=== PATIENT | female | born 1940 | race Caucasian/White ===

== ENCOUNTER 2020-08-25 20:46 | Emergency (ER) | payer MEDICARE, OTHER ==
[~2020-08-25] VITALS: Ht 162.6 cm; Wt 81.8 kg
[2020-08-25] MEDS ORDERED: predniSONE 20 MG TAB PO ONE (21:15)
[2020-08-25] MEDS ORDERED: oxyCODONE/APAP 5/325MG (PERCOCET 5) TABLET PO ONE (21:15)
[2020-08-25] MEDS ORDERED: ACETAMINOPHEN 325 MG TABLET PO ONE (21:15)
[2020-08-25] MEDS ORDERED: fentaNYL INJECTION 100 MCG/2 ML AMP IVP ONE (23:00)
[2020-08-25 23:22] LABS: HEMOGLOBIN 12.1 G/DL (11.5-16.0); MEAN CORPUSCULAR HEMOGLOBIN 30 PG (25-34); WHITE BLOOD COUNT 5.3 10^3/uL (4.3-11.0)
[2020-08-25 23:23] LABS: BASOPHILS % (AUTO) 0 % (0-10); EOSINOPHILS # (AUTO) 0.1 10^3/uL (0.0-0.3); EOSINOPHILS % (AUTO) 2 % (0-10); HEMATOCRIT 37 % (35-52); LYMPHOCYTES % (AUTO) 19 % (12-44); MEAN CORPUSCULAR HGB CONC 33 G/DL (32-36); MEAN CORPUSCULAR VOLUME 93 FL (80-99); MEAN PLATELET VOLUME 11.4 FL (7.4-10.4); MONOCYTES # (AUTO) 0.6 X 10^3 (0.0-1.0); MONOCYTES % (AUTO) 11 % (0-12); NEUTROPHILS # (AUTO) 3.5 X 10^3 (1.8-7.8); NEUTROPHILS % (AUTO) 67 % (42-75); PLATELET COUNT 160 10^3/uL (130-400)
--- NOTE | 2020-08-25 23:31 | ED General ---
General Chief Complaint: Lower Extremity Stated Complaint: PAIN Nursing Triage Note: Pt came in by EMS with chief complaint of bilateral leg pain, hip pain, back pain. Pt was alert, and oriented x 4. Pt stated this is chronic, but it got worse two weeks ago and even worse this morning. The pt stated she couldn't get out of bed this morning. Then she couldn't get out of her reclyiner to go to bed this evening and could not walk/lay down in bed. Pt took xanax for help, but did not help. Nursing Sepsis Screen: No Definite Risk History of Present Illness Date Seen by Provider: Aug 25, 2020 Time Seen by Provider: 20:50 Initial Comments The patient is a 79-year-old female with a history of hypertension, chronic lymphedema secondary to right breast cancer status post intervention, chronic pain syndrome, fibromyalgia and peripheral neuropathy. She reports chronic right neck, right shoulder and right chest wall pain as well as chronic low back and bilateral lower extremity pain for which she takes Lyrica, tizanidine and Paxil. Ms. Sosa presents from her assisted living facility with concern for acute worsening of her chronic right neck, right shoulder, right chest wall and right lower extremity pain. She states that over the past several days she has not been able to get out of her chair due to pain and has not been able to complete any of her own ADLs secondary to severe worsening of her chronic pain. She has taken her home medicines without relief of her pain. She states she is unable to walk secondary to her severe acute on chronic pain. She clarifies that there has been no trauma and that she has not had any falls or injuries. She denies fevers, nausea or vomiting upper respiratory congestion/rhinorrhea, cough, shortness of breath or chest pain of any kind, abdominal pain, flank pain, back pain, dysuria or hematuria, changes in bowel habits. She denies loss of bowel or bladder control, saddle anesthesia, new lower extremity weakness, numbness, tingling, new urinary retention. She is alert and pleasantly and appropriately interactive and in absolutely no acute distress with appropriate vital signs upon initial evaluation here in the emergency department. Allergies and Home Medications Allergies Coded Allergies: Sulfa (Sulfonamide Antibiotics) (Verified Allergy, Unknown, hives/rash, 08/25/20) codeine (Verified Allergy, Unknown, pain, 08/25/20) hydrocodone (Verified Allergy, Unknown, pain, 08/25/20) Patient Home Medication List Home Medication List Reviewed: Yes Review of Systems Review of Systems Constitutional: see HPI All Other Systems Reviewed Negative Unless Noted: Yes (Negative excepted noted.) Past Kuykzdq-Zvsawn-Khjkro Hx Past Med/Social Hx: Reviewed Nursing Past Med/Soc Hx Patient Social History Alcohol Use: Denies Use Recreational Drug Use: No Smoking Status: Never a Smoker 2nd Hand Smoke Exposure: No Recent Foreign Travel: No Contact w/Someone Who Travel: No Recent Infectious Disease Expo: No Recent Hopitalizations: No Physical Abuse: No Sexual Abuse: No Mistreated: No Fear: No Seasonal Allergies Seasonal Allergies: No Past Medical History Respiratory: No Cardiac: Yes Hypertension Neurological: No Genitourinary: No Gastrointestinal: No Musculoskeletal: Yes (polyneuropathy, lymphedema) Fibromyalgia Cancer: Yes Breast Psychosocial: No Integumentary: No Blood Disorders: No Family Medical History Reviewed Nursing Family Hx Physical Exam Vital Signs Vital Signs - First Documented 08/25/20 20:46 Temp 36.6 Pulse 87 Resp 18 B/P (MAP) 140/62 (88) Pulse Ox 96 O2 Delivery Room Air Capillary Refill : Less Than 3 Seconds Height, Weight, BMI Height: '" Weight: lbs. oz. kg; 30.00 BMI Method: General Appearance: No Apparent Distress Comments This is an elderly female appearing nontoxic and in no acute distress. Head is normocephalic and atraumatic. Neck is supple and nontender at the posterior midline, with mild right lateral tenderness to palpation without erythema, warmth or swelling which the patient states is acute on chronic. Oropharynx is moist. Lungs are clear to auscultation at all stations. Evaluation of the chest wall reveals no erythema, warmth, swelling, paradoxical movement or other acute abnormality however there is tenderness noted along the right midaxillary line, patient reports acute on chronic discomfort following her breast cancer intervention. There is a normal S1 and S2 without rubs or gallops and capillary refill is appropriate, less than 2 seconds globally. Abdomen is soft, nontender and nondistended. Examination of the back reveals no erythema, warmth, swelling, step-offs or deformities. Bilateral upper and lower extremities are neurovascularly intact with strength 5 out of 5, sensation intact to light touch in all nerve distributions, peripheral pulses 2+, capillary refill less than 2 seconds, hands and feet warm and well-perfused. There is mild tenderness over the right hip at the greater trochanter and there is mild pain with flexion and extension at the right hip but patient does have good active and passive range of motion of the right hip. No joint irritability to the right hip. No pain with ranging of any other joints of the right lower ex tremity. No calf tenderness or swelling bilaterally. Progress/Results/Core Measures Suspected Sepsis Recent Fever Within 48 Hours: No Infection Criteria Present: None New/Unexplained Altered Menta: No Sepsis Screen: No Definite Risk SIRS Temperature: Pulse: 87 Respiratory Rate: 18 Laboratory Tests 08/25/20 23:15: White Blood Count 5.3 Blood Pressure 140 /62 Mean: 88 Laboratory Tests 08/25/20 23:15: Creatinine 1.03, Platelet Count 160, Total Bilirubin 0.7 Results/Orders Lab Results Laboratory Tests Test 08/25/20 23:15 08/25/20 23:33 Range/Units White Blood Count 5.3 4.3-11.0 10^3/uL Red Blood Count 3.97 L 4.35-5.85 10^6/uL Hemoglobin 12.1 11.5-16.0 G/DL Hematocrit 37 35-52 % Mean Corpuscular Volume 93 80-99 FL Mean Corpuscular Hemoglobin 30 25-34 PG Mean Corpuscular Hemoglobin Concent 33 32-36 G/DL Red Cell Distribution Width 12.5 10.0-14.5 % Platelet Count 160 130-400 10^3/uL Mean Platelet Volume 11.4 H 7.4-10.4 FL Immature Granulocyte % (Auto) 0 % Neutrophils (%) (Auto) 67 42-75 % Lymphocytes (%) (Auto) 19 12-44 % Monocytes (%) (Auto) 11 0-12 % Eosinophils (%) (Auto) 2 0-10 % Basophils (%) (Auto) 0 0-10 % Neutrophils # (Auto) 3.5 1.8-7.8 X 10^3 Lymphocytes # (Auto) 1.0 1.0-4.0 X 10^3 Monocytes # (Auto) 0.6 0.0-1.0 X 10^3 Eosinophils # (Auto) 0.1 0.0-0.3 10^3/uL Basophils # (Auto) 0.0 0.0-0.1 10^3/uL Immature Granulocyte # (Auto) 0.0 0.0-0.1 10^3/uL Sodium Level 143 135-145 MMOL/L Potassium Level 4.4 3.6-5.0 MMOL/L Chloride Level 104 98-107 MMOL/L Carbon Dioxide Level 28 21-32 MMOL/L Anion Gap 11 5-14 MMOL/L Blood Urea Nitrogen 24 H 7-18 MG/DL Creatinine 1.03 0.60-1.30 MG/DL Estimat Glomerular Filtration Rate 52 BUN/Creatinine Ratio 23 Glucose Level 102 70-105 MG/DL Calcium Level 8.8 8.5-10.1 MG/DL Corrected Calcium 9.0 8.5-10.1 MG/DL Total Bilirubin 0.7 0.1-1.0 MG/DL Aspartate Amino Transf (AST/SGOT) 13 5-34 U/L Alanine Aminotransferase (ALT/SGPT) 7 0-55 U/L Alkaline Phosphatase 60 40-136 U/L Troponin I < 0.30 <0.30 NG/ML Pro-B-Type Natriuretic Peptide 107.1 H <75.0 PG/ML Total Protein 6.3 L 6.4-8.2 GM/DL Albumin 3.7 3.2-4.5 GM/DL Urine Color YELLOW Urine Clarity CLEAR Urine pH 6.0 5-9 Urine Specific [place] 1.025 H 1.016-1.022 Urine Protein NEGATIVE NEGATIVE Urine Glucose (UA) NEGATIVE NEGATIVE Urine Ketones NEGATIVE NEGATIVE Urine Nitrite NEGATIVE NEGATIVE Urine Bilirubin NEGATIVE NEGATIVE Urine Urobilinogen 0.2 < = 1.0 MG/DL Urine Leukocyte Esterase NEGATIVE NEGATIVE Urine RBC (Auto) NEGATIVE NEGATIVE Urine RBC NONE /HPF Urine WBC RARE /HPF Urine Squamous Epithelial Cells 0-2 /HPF Urine Crystals NONE /LPF Urine Bacteria NEGATIVE /HPF Urine Casts NONE /LPF Urine Mucus LARGE H /LPF Urine Culture Indicated NO My Orders Orders - NIMO MCKAY MD Oxycodone/Apap 5/325mg Tablet (Percocet (08/25/20 21:15) Acetaminophen Tablet/Caplet (Tylenol T (08/25/20 21:15) Prednisone Tablet (Deltasone Tablet) (08/25/20 21:15) Cbc With Automated Diff (08/25/20 22:48) Comprehensive Metabolic Panel (10/3/20 22:48) Troponin I Fs (08/25/20 22:48) Ekg Tracing (08/25/20 22:48) Chest 1 View Ap/Pa Only (08/25/20 22:48) Ua Culture If Indicated (08/25/20 22:48) Probnp Fs (08/25/20 22:48) Fentanyl Injection (Sublimaze Injection (08/25/20 23:00) Medications Given in ED Current Medications Medications Dose Ordered Sig/Rod Route Start Time Stop Time Status Last Admin Dose Admin Acetaminophen 650 mg ONCE ONCE PO 08/25/20 21:15 08/25/20 21:16 DC 08/25/20 21:40 650 MG Fentanyl Citrate 50 mcg ONCE ONCE IVP 08/25/20 23:00 08/25/20 23:01 DC 08/25/20 23:27 50 MCG Oxycodone/ Acetaminophen 1 tab ONCE ONCE PO 08/25/20 21:15 08/25/20 21:16 DC 08/25/20 21:41 1 TAB Prednisone 50 mg ONCE ONCE PO 08/25/20 21:15 08/25/20 21:16 DC 08/25/20 21:41 50 MG Vital Signs/I&O 08/25/20 20:46 Temp 36.6 Pulse 87 Resp 18 B/P (MAP) 140/62 (88) Pulse Ox 96 O2 Delivery Room Air Capillary Refill : Less Than 3 Seconds Blood Pressure Mean: 88 Progress Note : Time: 20:55 Progress Note Elderly female who presents reporting inability to ambulate secondary to an acute flare of her chronic right neck, right shoulder, right chest wall and right hip pain. Vital signs and clinical examination are reassuring. We'll treat symptomatically with medications as per nursing flow sheet and will then reevaluate. If patient feels better and is able to ambulate safely, anticipate discharge home back to her assisted living facility to follow up closely with her pain management doctor immediately after the weekend. She understands and agrees with this plan of care. 2300: Unfortunately, patient states her pain is not improved after multiple med ications for symptom management here in the emergency department. She is unable to ambulate due to pain. Therefore, we will escalate workup with labs, EKG and chest x-ray (low suspicion for any acute process aside from an acute flare of her chronic pain/fibromyalgia, so will hold off on imaging right shoulder and hip given no history of any trauma to those areas), and will plan for hospital admission for attention from physical therapy, pain control and further care. 0005: Workup as above is unremarkable and reassuring. No clear acute etiology for patient's pain; as multiple rounds of medication have not resulted in any improvement in discomfort, feel that there is most likely a significant supratentorial component to the underlying process. Nevertheless, this is a very elderly female who is unable to walk due to pain and cannot be discharged back to her assisted living apartment at this time. Will require admission. Patient requests to be admitted to [place] and declines [facility] admission. She is graciously accepted in transfer to that facility by Dr. Arreguin. ECG Comment Sinus rhythm, left bundle branch block, no acute ST elevation or depression, rate 68, EP interpretation. Diagnostic Imaging Comments XR chest: no acute process on my wet read; ICD-type device in place. Departure Impression Primary Impression: Acute right hip pain Additional Impressions: Acute chest wall pain Chronic pain syndrome Unable to ambulate Disposition: XFER SHT-TRM HOSP Condition: Stable Transfer Transfer Reason: Patient preference Time Spoke to Accepting Phy: 00:00 Transfer Progress Notes Patient declines [facility] admission and requests [facility] transfer. Will respect her preference in this matter. She understands that we have the services needed to care for her at [facility]. Transfer Facility: [place] Departure-Patient Inst. Referrals: NO,LOCAL PHYSICIAN (PCP/Family) Primary Care Physician NIMO MCKAY MD Aug 25, 2020 23:31
[2020-08-25 23:42] LABS: CLARITY,URINE CLEAR; COLOR,URINE YELLOW
[2020-08-25 23:43] LABS: BACTERIA,URINE NEGATIVE /HPF; BILIRUBIN,URINE NEGATIVE (NEGATIVE); GLUCOSE, URINE (UA) NEGATIVE (NEGATIVE); KETONES,URINE NEGATIVE (NEGATIVE); LEUKOCYTE ESTERASE ,URINE NEGATIVE (NEGATIVE); NITRITE,URINE NEGATIVE (NEGATIVE); PROTEIN,URINE NEGATIVE (NEGATIVE); SQUAMOUS EPITHELIAL CELL,UR 0-2 /HPF; WBC,URINE RARE /HPF
[2020-08-25 23:43] LABS: BUN/CREATININE RATIO 23; CARBON DIOXIDE 28 MMOL/L (21-32); CHLORIDE 104 MMOL/L (98-107); CREATININE SERUM 1.03 MG/DL (0.60-1.30); GFR ESTIMATED 52; GLUCOSE 102 MG/DL (70-105); POTASSIUM 4.4 MMOL/L (3.6-5.0); SODIUM 143 MMOL/L (135-145)
[2020-08-25 23:44] LABS: ALANINE AMINOTRANSFERASE 7 U/L (0-55); ALBUMIN 3.7 GM/DL (3.2-4.5); ALKALINE PHOSPHATASE 60 U/L (40-136); BILIRUBIN,TOTAL 0.7 MG/DL (0.1-1.0); CALCIUM 8.8 MG/DL (8.5-10.1); TOTAL PROTEIN 6.3 GM/DL (6.4-8.2)
[2020-08-26 00:42] VITALS: BP 139/60
--- NOTE | 2020-08-26 01:20 | NUR ---
Report was given to [facility] at this time. Care was transferred.
--- NOTE | 2020-08-26 02:03 | NUR ---
[facility] was called and notified that pt was transferred to [facility]. Karen Sosa her emergency contact was notified as well.
--- NOTE | 2020-08-26 06:45 | Diagnostic Imaging Report ---
Indication: Dyspnea with lower extremity pain and back pain. Comparison: None. Discussion: Single portable upright view of the chest was obtained. Heart is upper limits of normal in size. Elevated right hemidiaphragm. Patchy opacities within the left lung base likely represents atelectasis. Early pneumonia is not entirely excluded. No pleural fluid or pneumothorax. Left-sided pacemaker is noted. No osseous abnormality. Impression: 1. Mild infiltrates within the left lung base, likely atelectasis. Early pneumonia cannot be excluded. Dictated by: Dictated on workstation # [id number]
== END 2020-08-26 01:20 | disposition short-term general hospital (02) ==
LOC: EDUNIT# 20:46 → ER FS 20:48
DX: M25.551 Pain in right hip (principal); R07.89 Other chest pain; G89.29 Other chronic pain; Z85.3 Personal history of malignant neoplasm of breast; Z88.2 Allergy status to sulfonamides; Z88.5 Allergy status to narcotic agent
CPT/HCPCS: 36415; 51702; 71045; 80053; 81000; 83880; 84484; 85025; 93005

== ENCOUNTER → 2020-12-23 | Outpatient (CLI) | payer MEDICARE, OTHER ==
[2020-12-23 16:30] LABS: BACTERIA,URINE NEGATIVE /HPF; BILIRUBIN,URINE NEGATIVE (NEGATIVE); CLARITY,URINE CLEAR; COLOR,URINE DARK YELLOW; GLUCOSE, URINE (UA) NEGATIVE (NEGATIVE); KETONES,URINE NEGATIVE (NEGATIVE); LEUKOCYTE ESTERASE ,URINE TRACE (NEGATIVE); NITRITE,URINE NEGATIVE (NEGATIVE); PH,URINE 5.5 (5-9); PROTEIN,URINE NEGATIVE (NEGATIVE)
[2020-12-23 16:31] LABS: CALCIUM OXALATE CRYSTALS,UR MODERATE /LPF; SQUAMOUS EPITHELIAL CELL,UR 0-2 /HPF
== END ==
LOC: LAB FS 15:23
PROVIDERS: ATTEND Family Medicine
DX: N39.8 Other specified disorders of urinary system (principal); R30.0 Dysuria
CPT/HCPCS: 81000; 87088

== ENCOUNTER 2023-04-30 14:38 | Emergency (ER) | payer MEDICARE, OTHER ==
[~2023-04-30] VITALS: Ht 160 cm; Wt 65.0 kg
[~2023-04-30 14:38] MED LIST: KETO10TA PO
--- NOTE | 2023-04-30 14:44 | ED General ---
General Chief Complaint: General Problems/Pain Stated Complaint: SYNCOPAL EPISODE History of Present Illness Date Seen by Provider: Apr 30, 2023 Time Seen by Provider: 14:44 Initial Comments 82-year-old female sent in from [facility] for syncopal episode x2. Patient was in her wheelchair both times so that they were standing up when she had syncopal episodes. No reports of chest pain, recent illnesses, nausea vomiting or any other systemic complaints. Nursing feels that maybe she is lit tle bit mild dehydrated. No urinary symptoms. Allergies and Home Medications Allergies Coded Allergies: Sulfa (Sulfonamide Antibiotics) (Verified Allergy, Unknown, hives/rash, 08/25/20) codeine (Verified Allergy, Unknown, pain, 08/25/20) hydrocodone (Verified Allergy, Unknown, pain, 08/25/20) Patient Home Medication List Home Medication List Reviewed: Yes Ketorolac Tromethamine (Ketorolac Tromethamine) 10 Mg Tablet, 10 MG PO Q6H Prescribed by: HARSHIL ANDREWS on 03/01/221912 Review of Systems Review of Systems Constitutional: No chills, No dizziness; malaise EENTM: no symptoms reported Respiratory: no symptoms reported Cardiovascular: syncope Gastrointestinal: no symptoms reported Musculoskeletal: no symptoms reported Skin: no symptoms reported Psychiatric/Neurological: No Symptoms Reported Hematologic/Lymphatic: No Symptoms Reported Immunological/Allergic: no symptoms reported Past Ayujrlf-Vnkpjf-Xgfchg Hx Seasonal Allergies Seasonal Allergies: No Past Medical History Surgeries: Yes Breast, Eye Surgery, Gallbladder, Pacemaker, Tonsillectomy Respiratory: No Cardiac: Yes (History of heart block requiring pacemaker, lymphedema) Hypertension Neurological: Yes Neuropathy Genitourinary: No Gastrointestinal: No Musculoskeletal: Yes (polyneuropathy, lymphedema) Fibromyalgia HEENT: Yes Glaucoma Cancer: Yes Breast Psychosocial: No Integumentary: No Blood Disorders: No Physical Exam Vital Signs Vital Signs - First Documented 04/30/23 14:45 Pulse 63 Resp 18 B/P (MAP) 94/48 (63) Pulse Ox 97 O2 Delivery Room Air Capillary Refill : Height, Weight, BMI Height: '" Weight: lbs. oz. kg; 24.00 BMI Method: General Appearance: No Apparent Distress HEENT: PERRL/EOMI Respiratory: Lungs Clear, Normal Breath Sounds Cardiovascular: Regular Rate, Rhythm, No Edema Gastrointestinal: Non Tender, Soft Neurologic/Psychiatric: Oriented x3, No Motor/Sensory Deficits, Normal Mood /Affect, blacking wheel tender II-XII Norm as Tested Skin: Normal Color, Warm/Dry Focused Exam Lactate Level 04/30/23 14:53: Lactic Acid Level 1.35 Lactic Acid Level Laboratory Tests Test 04/30/23 14:53 Lactic Acid Level 1.35 MMOL/L (0.50-2.00) Progress/Results/Core Measures Suspected Sepsis SIRS Temperature: Pulse: Respiratory Rate: Laboratory Tests 04/30/23 14:45: White Blood Count 6.1 Blood Pressure / Mean: 04/30/23 14:53: Lactic Acid Level 1.35 Laboratory Tests 04/30/23 14:45: Creatinine 0.99, Platelet Count 142, Total Bilirubin 0.9 Results/Orders Lab Results Laboratory Tests Test 04/30/23 14:45 04/30/23 14:53 04/30/23 15:57 Range/Units White Blood Count 6.1 4.3-11.0 10^3/uL Red Blood Count 3.88 3.80-5.11 10^6/uL Hemoglobin 11.8 11.5-16.0 g/dL Hematocrit 36 35-52 % Mean Corpuscular Volume 94 80-99 fL Mean Corpuscular Hemoglobin 30 25-34 pg Mean Corpuscular Hemoglobin Concent 33 32-36 g/dL Red Cell Distribution Width 12.9 10.0-14.5 % Platelet Count 142 130-400 10^3/uL Mean Platelet Volume 11.2 9.0-12.2 fL Immature Granulocyte % (Auto) 0 % Neutrophils (%) (Auto) 76 H 42-75 % Lymphocytes (%) (Auto) 14 12-44 % Monocytes (%) (Auto) 8 0-12 % Eosinophils (%) (Auto) 2 0-10 % Basophils (%) (Auto) 1 0-10 % Neutrophils # (Auto) 4.6 1.8-7.8 10^3/uL Lymphocytes # (Auto) 0.8 L 1.0-4.0 10^3/uL Monocytes # (Auto) 0.5 0.0-1.0 10^3/uL Eosinophils # (Auto) 0.1 0.0-0.3 10^3/uL Basophils # (Auto) 0.0 0.0-0.1 10^3/uL Immature Granulocyte # (Auto) 0.0 0.0-0.1 10^3/uL Sodium Level 140 135-145 MMOL/L Potassium Level 4.4 3.6-5.0 MMOL/L Chloride Level 104 98-107 MMOL/L Carbon Dioxide Level 28 21-32 MMOL/L Anion Gap 8 5-14 MMOL/L Blood Urea Nitrogen 16 7-18 MG/DL Creatinine 0.99 0.60-1.30 MG/DL Estimat Glomerular Filtration Rate 58 BUN/Creatinine Ratio 16 Glucose Level 106 H 70-105 MG/DL Calcium Level 8.8 8.5-10.1 MG/DL Corrected Calcium 9.3 8.5-10.1 MG/DL Magnesium Level 2.3 1.6-2.4 MG/DL Total Bilirubin 0.9 0.1-1.0 MG/DL Aspartate Amino Transf (AST/SGOT) 18 5-34 U/L Alanine Aminotransferase (ALT/SGPT) 9 0-55 U/L Alkaline Phosphatase 51 40-136 U/L Troponin I < 0.30 <0.30 NG/ML C-Reactive Protein < 0.30 <0.50 MG/DL Pro-B-Type Natriuretic Peptide 142.3 <450.0 PG/ML Total Protein 6.0 L 6.4-8.2 GM/DL Albumin 3.4 3.2-4.5 GM/DL Serum Alcohol < 10 <10 MG/DL Lactic Acid Level 1.35 0.50-2.00 MMOL/L Urine Color YELLOW Urine Clarity CLEAR Urine pH 6.0 5-9 Urine Specific [place] <=1.005 1.016-1.022 Urine Protein NEGATIVE NEGATIVE Urine Glucose (UA) NEGATIVE NEGATIVE Urine Ketones NEGATIVE NEGATIVE Urine Nitrite NEGATIVE NEGATIVE Urine Bilirubin NEGATIVE NEGATIVE Urine Urobilinogen 0.2 < = 1.0 MG/DL Urine Leukocyte Esterase NEGATIVE NEGATIVE Urine RBC (Auto) NEGATIVE NEGATIVE Urine RBC NONE /HPF Urine WBC RARE /HPF Urine Squamous Epithelial Cells 5-10 /HPF Urine Crystals NONE /LPF Urine Bacteria NEGATIVE /HPF Urine Casts NONE /LPF Urine Mucus NEGATIVE /LPF Urine Culture Indicated NO My Orders Orders - CHILDS,PRINCESS L DO Alcohol (04/30/23 14:45) Cbc With Automated Diff (04/30/23 14:45) Comprehensive Metabolic Panel (04/30/23 14:45) Lactic Acid Analyzer (04/30/23 14:45) Magnesium (04/30/23 14:45) Ua Culture If Indicated (04/30/23 14:45) Crp Fs (04/30/23 14:45) Troponin I Fs (04/30/23 14:45) Ekg Tracing (04/30/23 14:45) Monitor-Rhythm Ecg Trace Only (04/30/23 14:45) Ed Iv/Invasive Line Start (04/30/23 14:45) Ns Iv 500 Ml (Sodium Chloride 0.9%) (04/30/23 14:45) Probnp Fs (04/30/23 14:45) Medications Given in ED Current Medications Medications Dose Ordered Sig/Rod Route Start Time Stop Time Status Last Admin Dose Admin Sodium Chloride 500 ml @ 0 mls/hr Q0M ONCE IV 04/30/23 14:45 04/30/23 14:46 DC 04/30/23 14:51 0 MLS/HR Vital Signs/I&O 04/30/23 14:45 Pulse 63 Resp 18 B/P (MAP) 94/48 (63) Pulse Ox 97 O2 Delivery Room Air Capillary Refill : Progress Note : Progress Note Patient's diagnostic studies were ordered reviewed and interpreted by me. Patient's labs show no concerning acute findings. Patient's EKG shows ventricular rate 62, AL 172 with paced rhythm. Patient's UA shows no signs of infection or acute findings. Patient had no episodes of syncope while in the ER. Patient's syncope was likely due to vasovagal as it is happened twice when they were standing up out of her wheelchair. She she is able to stand here and had no symptoms at that time. Patient was given some mild IV fluids as she may have been mildly dehydrated. She is stable and discharged home Departure Impression Primary Impression: Vasovagal syncope Disposition: 01 HOME, SELF-CARE Condition: Stable Departure-Patient Inst. Referrals: SINAN RIVAS MD (PCP/Family) Primary Care Physician Patient Instructions: Vasovagal Response, Syncope (Fainting) (DC) Add. Discharge Instructions: Be sure to drink plenty of fluids. Follow-up with your primary care provider in a couple days for recheck of your symptoms. Return to the ER with any concerns. All discharge instructions reviewed with patient and/or family. Voiced understanding. PRINCESS CHILDS DO Apr 30, 2023 14:44
[2023-04-30] MEDS ORDERED: NS IV 500 ML 500 ML IV ONE (14:45)
[2023-04-30 15:03] LABS: BASOPHILS % (AUTO) 1 % (0-10); EOSINOPHILS # (AUTO) 0.1 10^3/uL (0.0-0.3); EOSINOPHILS % (AUTO) 2 % (0-10); HEMATOCRIT 36 % (35-52); HEMOGLOBIN 11.8 g/dL (11.5-16.0); LYMPHOCYTES # (AUTO) 0.8 10^3/uL (1.0-4.0); LYMPHOCYTES % (AUTO) 14 % (12-44); MEAN CORPUSCULAR HEMOGLOBIN 30 pg (25-34); MEAN CORPUSCULAR HGB CONC 33 g/dL (32-36); MEAN CORPUSCULAR VOLUME 94 fL (80-99); MEAN PLATELET VOLUME 11.2 fL (9.0-12.2); MONOCYTES # (AUTO) 0.5 10^3/uL (0.0-1.0); MONOCYTES % (AUTO) 8 % (0-12); NEUTROPHILS # (AUTO) 4.6 10^3/uL (1.8-7.8); NEUTROPHILS % (AUTO) 76 % (42-75); PLATELET COUNT 142 10^3/uL (130-400); WHITE BLOOD COUNT 6.1 10^3/uL (4.3-11.0)
[2023-04-30 15:29] LABS: SODIUM 140 MMOL/L (135-145)
[2023-04-30 15:30] LABS: ALANINE AMINOTRANSFERASE 9 U/L (0-55); ALKALINE PHOSPHATASE 51 U/L (40-136); BILIRUBIN,TOTAL 0.9 MG/DL (0.1-1.0); BUN/CREATININE RATIO 16; CALCIUM 8.8 MG/DL (8.5-10.1); CARBON DIOXIDE 28 MMOL/L (21-32); CHLORIDE 104 MMOL/L (98-107); CREATININE SERUM 0.99 MG/DL (0.60-1.30); GFR ESTIMATED 58; GLUCOSE 106 MG/DL (70-105); MAGNESIUM 2.3 MG/DL (1.6-2.4); POTASSIUM 4.4 MMOL/L (3.6-5.0)
[2023-04-30 15:31] LABS: ALBUMIN 3.4 GM/DL (3.2-4.5)
[2023-04-30 16:07] LABS: BILIRUBIN,URINE NEGATIVE (NEGATIVE); CLARITY,URINE CLEAR; COLOR,URINE YELLOW; GLUCOSE, URINE (UA) NEGATIVE (NEGATIVE); KETONES,URINE NEGATIVE (NEGATIVE); LEUKOCYTE ESTERASE ,URINE NEGATIVE (NEGATIVE); NITRITE,URINE NEGATIVE (NEGATIVE); PROTEIN,URINE NEGATIVE (NEGATIVE)
[2023-04-30 16:09] LABS: BACTERIA,URINE NEGATIVE /HPF; WBC,URINE RARE /HPF
[2023-04-30 16:22] VITALS: BP 102/54
== END 2023-04-30 16:28 | disposition home or self-care (01) ==
LOC: EDUNIT# 14:38 → ER FS 14:39
DX: R55 Syncope and collapse (principal)
CPT/HCPCS: 36415; 80053; 81000; 83605; 83735; 83880; 84484; 85025; 86141; 93005; 99284; G0480; 80320

== ENCOUNTER 2023-05-08 18:26 | Emergency (ER) | payer MEDICARE, OTHER ==
[~2023-05-08] VITALS: Ht 160 cm; Wt 63.5 kg
[2023-05-08] MEDS ORDERED: FUROSEMIDE 40 MG/4 ML INJ (LASIX) IVP STA (18:43)
--- NOTE | 2023-05-08 18:51 | ED General ---
General Chief Complaint: General Problems/Pain Stated Complaint: EDEMA Source of Information: Patient, Old Records (ED visit from April 30, 2023) History of Present Illness Date Seen by Provider: May 08, 2023 Time Seen by Provider: 18:29 Initial Comments 82-year-old female presenting with complaints of "throwing up with fluid". She states she was here last and evaluated. She does take Lasix 20 mg a day and had seen Did not any on Thursday, May 04. She was told to take Tylenol for pain that she has in her chest and they did not change her diuretic. She feels like she is getting more fluid buildup. She denies feeling shortness of breath. She lives at [facility] and states that the nurses recommended she come to the emergency department to try and get some IV diuretics. Timing/Duration: Getting Worse (Reportedly worsening edema and swelling over the last several weeks) Severity: Severe Associated Systoms: Chest Pain; No Cough, No Diaphoresis, No Fever/Chills, No Headaches, No Loss of Appetite, No Malaise, No Nausea/Vomiting, No Rash, No Seizure, No Shortness of Air, No Syncope, No Weakness Allergies and Home Medications Allergies Coded Allergies: Sulfa (Sulfonamide Antibiotics) (Verified Allergy, Unknown, hives/rash, 08/25/20) codeine (Verified Allergy, Unknown, pain, 08/25/20) hydrocodone (Verified Allergy, Unknown, pain, 08/25/20) Patient Home Medication List Home Medication List Reviewed: Yes Cephalexin (Cephalexin) 500 Mg Capsule, 500 MG PO TID Prescribed by: KIRT ENRIQUE on 05/08/231999 Furosemide (Furosemide) 40 Mg Tablet, 40 MG PO DAILY Prescribed by: KIRT ENRIUQE on 05/08/231999 Ketorolac Tromethamine (Ketorolac Tromethamine) 10 Mg Tablet, 10 MG PO Q6H Prescribed by: HARSHIL ANDREWS on 03/01/221912 Pantoprazole Sodium (Pantoprazole Sodium) 40 Mg Tablet.dr, 40 MG PO DAILY Prescribed by: KIRT ENRIQUE on 05/08/232002 Potassium Chloride (Potassium Chloride) 10 Meq Capsule.er, 10 MEQ PO DAILY Prescribed by: KIRT ENRIQUE on 05/08/231999 Review of Systems Review of Systems Constitutional: No chills, No fever EENTM: no symptoms reported Respiratory: No short of breath Cardiovascular: see HPI, edema Gastrointestinal: No nausea, No vomiting Genitourinary: No dysuria Musculoskeletal: no symptoms reported Skin: no symptoms reported Psychiatric/Neurological: Anxiety Past [id number]-[id number] Hx Patient Social History Tobacco Use?: No Substance use?: No Alcohol Use?: No Pt feels they are or have been: No Seasonal Allergies Seasonal Allergies: No Past Medical History Surgeries: Yes Breast, Eye Surgery, Gallbladder, Pacemaker, Tonsillectomy Respiratory: No Cardiac: Yes (History of heart block requiring pacemaker, lymphedema) Hypertension Neurological: Yes Neuropathy Genitourinary: No Gastrointestinal: No Musculoskeletal: Yes (polyneuropathy, lymphedema) Fibromyalgia HEENT: Yes Glaucoma Cancer: Yes Breast Psychosocial: No Integumentary: No Blood Disorders: No Physical Exam Vital Signs Vital Signs - First Documented 05/08/23 18:30 Temp 37.0 Pulse 88 Resp 18 B/P (MAP) 148/60 (89) Pulse Ox 99 O2 Delivery Room Air Capillary Refill : Height, Weight, BMI Height: '" Weight: lbs. oz. kg; 25.00 BMI Method: General Appearance: No Apparent Distress, Chronically ill HEENT: PERRL/EOMI, Pharynx Normal Neck: Full Range of Motion, Normal Inspection, Non Tender, Supple Respiratory: Chest Non Tender, Lungs Clear, Normal Breath Sounds, No Accessory Muscle Use, No Respiratory Distress Cardiovascular: Regular Rate, Rhythm, No Murmur, Normal Peripheral Pulses Gastrointestinal: Normal Bowel Sounds, No Pulsatile Mass, Non Tender, Soft Rectal: Deferred Extremity: Normal Capillary Refill, Pedal Edema (2+ pitting edema to bilateral lower extremities) Neurologic/Psychiatric: Alert, Oriented x3, quality compliance coordinator II-XII Norm as Tested Skin: Warm/Dry Progress/Results/Core Measures Suspected Sepsis SIRS Temperature: Pulse: Respiratory Rate: Laboratory Tests 05/08/23 19:05: White Blood Count 4.5 Blood Pressure / Mean: Laboratory Tests 05/08/23 19:05: Creatinine 1.03, INR Comment 0.9, Platelet Count 148, Total Bilirubin 0.9 Results/Orders Lab Results Laboratory Tests Test 05/08/23 18:53 05/08/23 19:05 Range/Units Urine Color YELLOW Urine Clarity CLEAR Urine pH 6.0 5-9 Urine Specific [place] 1.010 L 1.016-1.022 Urine Protein NEGATIVE NEGATIVE Urine Glucose (UA) NEGATIVE NEGATIVE Urine Ketones NEGATIVE NEGATIVE Urine Nitrite NEGATIVE NEGATIVE Urine Bilirubin NEGATIVE NEGATIVE Urine Urobilinogen 0.2 < = 1.0 MG/DL Urine Leukocyte Esterase TRACE H NEGATIVE Urine RBC (Auto) NEGATIVE NEGATIVE Urine RBC NONE /HPF Urine WBC 10-25 H /HPF Urine Squamous Epithelial Cells 2-5 /HPF Urine Crystals NONE /LPF Urine Bacteria TRACE /HPF Urine Casts NONE /LPF Urine Mucus NEGATIVE /LPF Urine Culture Indicated YES White Blood Count 4.5 4.3-11.0 10^3/uL Red Blood Count 3.96 3.80-5.11 10^6/uL Hemoglobin 12.2 11.5-16.0 g/dL Hematocrit 37 35-52 % Mean Corpuscular Volume 94 80-99 fL Mean Corpuscular Hemoglobin 31 25-34 pg Mean Corpuscular Hemoglobin Concent 33 32-36 g/dL Red Cell Distribution Width 13.0 10.0-14.5 % Platelet Count 148 130-400 10^3/uL Mean Platelet Volume 10.6 9.0-12.2 fL Immature Granulocyte % (Auto) 0 % Neutrophils (%) (Auto) 62 42-75 % Lymphocytes (%) (Auto) 25 12-44 % Monocytes (%) (Auto) 9 0-12 % Eosinophils (%) (Auto) 3 0-10 % Basophils (%) (Auto) 1 0-10 % Neutrophils # (Auto) 2.8 1.8-7.8 10^3/uL Lymphocytes # (Auto) 1.1 1.0-4.0 10^3/uL Monocytes # (Auto) 0.4 0.0-1.0 10^3/uL Eosinophils # (Auto) 0.1 0.0-0.3 10^3/uL Basophils # (Auto) 0.1 0.0-0.1 10^3/uL Immature Granulocyte # (Auto) 0.0 0.0-0.1 10^3/uL Prothrombin Time 12.8 12.2-14.7 SEC INR Comment 0.9 0.8-1.4 Activated Partial Thromboplast Time 24 24-35 SEC Sodium Level 141 135-145 MMOL/L Potassium Level 4.1 3.6-5.0 MMOL/L Chloride Level 102 98-107 MMOL/L Carbon Dioxide Level 27 21-32 MMOL/L Anion Gap 12 5-14 MMOL/L Blood Urea Nitrogen 17 7-18 MG/DL Creatinine 1.03 0.60-1.30 MG/DL Estimat Glomerular Filtration Rate 55 BUN/Creatinine Ratio 17 Glucose Level 114 H 70-105 MG/DL Calcium Level 9.2 8.5-10.1 MG/DL Corrected Calcium 9.3 8.5-10.1 MG/DL Magnesium Level 2.3 1.6-2.4 MG/DL Total Bilirubin 0.9 0.1-1.0 MG/DL Aspartate Amino Transf (AST/SGOT) 41 H 5-34 U/L Alanine Aminotransferase (ALT/SGPT) 21 0-55 U/L Alkaline Phosphatase 61 40-136 U/L Troponin I < 0.30 <0.30 NG/ML Pro-B-Type Natriuretic Peptide 104.6 <450.0 PG/ML Total Protein 6.6 6.4-8.2 GM/DL Albumin 3.9 3.2-4.5 GM/DL Lipase 58 8-78 U/L My Orders Orders - KIRT ENRIQUE MD Ua Culture If Indicated (05/08/23 18:31) Cbc With Automated Diff (05/08/23 18:43) Magnesium (05/08/23 18:43) Chest 1 View Ap/Pa Only (05/08/23 18:43) Ekg Tracing (05/08/23 18:43) Comprehensive Metabolic Panel (05/08/23 18:43) Protime With Inr (05/08/23 18:43) Partial Thromboplastin Time (05/08/23 18:43) O2 (05/08/23 18:43) Monitor-Rhythm Ecg Trace Only (05/08/23 18:43) Ed Iv/Invasive Line Start (05/08/23 18:43) Lipase (05/08/23 18:43) Troponin I Fs (05/08/23 18:43) Probnp Fs (05/08/23 18:43) Furosemide Injection (Lasix Injection) (05/08/23 18:43) Urine Culture (05/08/23 18:53) Pantoprazole Injection (Protonix Injecti (05/08/23 19:23) Ketorolac Injection (Toradol Injection) (05/08/23 19:23) Lidocaine 2% Viscous 15 Ml (Xylocaine Vi (05/08/23 19:30) Antacid Suspension (Mylanta Suspension (05/08/23 19:30) Ceftriaxone Iv/Im (Rocephin Iv/Im) (05/08/23 20:05) Medications Given in ED Current Medications Medications Dose Ordered Sig/Rod Route Start Time Stop Time Status Last Admin Dose Admin Al Hydrox/Mg Hydrox/Simethicone 30 ml ONCE ONCE PO 05/08/23 19:30 05/08/23 19:31 DC 05/08/23 19:31 30 ML Lidocaine HCl 15 ml ONCE ONCE PO 05/08/23 19:30 05/08/23 19:31 DC 05/08/23 19:31 15 ML Vital Signs/I&O 05/08/23 05/08/23 18:30 20:17 Temp 37.0 Pulse 88 82 Resp 18 18 B/P (MAP) 148/60 (89) 136/64 Pulse Ox 99 99 O2 Delivery Room Air Room Air Capillary Refill : Progress Note #1: Progress Note Potential diagnosis of renal failure, worsening heart failure, peripheral vascular disease, dependent edema. Cardiac testing from last week on April 30 did not show any acute ischemia or heart failure. We will repeat labs and check complete blood count, comprehensive metabolic profile, troponin, proBNP, lipase, coagulation factors. Urinalysis to look for signs of infection and hydration, electrocardiogram to evaluate for possible electrolyte abnormalities or arrhythmia. Single view chest x-ray to look for signs of pulmonary edema or fluid overload. Administer Lasix 80 mg IV x1 to try and help with diuresis while waiting on testing. Progress Note #2: Time: 18:55 Progress Note On my personal interpretation and review her 1 view chest x-ray does not show any acute infiltrate or effusion or pulmonary edema. She does have some cardiomegaly and enlarged gastric bubble for a hiatal hernia. Her electrocardiogram just showed electronic ventricular pacemaker without ST elevation or acute changes. Her oxygen saturation is 99% on room air she is afebrile with a temperature of 37 and her blood pressure looks good at 148/60. Awaiting blood work and urine. Administering Lasix 80 mg IV x1 and seeing if she has any diuresis with that. 191 patient was complaining of sharp chest pains especially with movement and deep breaths. With her having a large hiatal hernia will try giving a GI cocktail as well as a low-dose of Toradol IV and Protonix IV. Her urinalysis did show signs of infection with trace LE and 10-25 WBC with bacteria and a cul ture was reflexed. I reviewed the radiologist report on the 1 view chest x-ray and they also saw the large hiatal hernia but no pulmonary edema or pulmonary vascular congestion for fluid and failure. Complete blood count is not showing elevation of her WBC or acute anemia. Progress Note #3: Time: 19:47 Progress Note Comprehensive metabolic profile did not show any acute significant electrolyte abnormality to account for her symptoms. Her renal function appeared stable. She was not showing signs of renal failure or hepatic failure. Her troponin was less than 0.3 and her proBNP was not elevated either. Counseled patient on findings of UTI and that her kidney and heart function appeared to be normal. Encouraged to take a higher dose of furosemide at 40 mg for the next 10 days and prescribe potassium chloride of 10 mill equivalents to take with that to help prevent hypokalemia. Encouraged to check back with the clinic as they may need to set her up for compression socks or change the medicine to help with the swelling. At this point she was not having any fluid buildup in the lungs t hemselves. Just with elevating her legs and getting the Lasix here in the emergency department the swelling was seeming to go down. Encouraged to try and elevate her legs is much as she could to help with the swelling and again checking back with the clinic for more definitive care and treatment. Added on Protonix for her to take for hiatal hernia in case that was contributing to the pain that she was having up into her chest. Also prescribed cephalexin 500 mg 3 times daily x5 days for UTI and given Rocephin 1 g IV here in the ED. ECG Initial ECG Impression Date: May 08, 2023 Initial ECG Impression Time: 18:57 Initial ECG Rate: 82 Initial ECG Comparisson: Unchanged (04/30/2023) Comment On my personal interpretation and review of the electrocardiogram she has an e lectronic ventricular pacemaker with a rate of 82 bpm. TN interval [address] elevation. QT interval 423 ms with a QTc interval 461 ms. She has no acute significant change from her prior tracing on April 30, 2023. Diagnostic Imaging Diagonstic Imaging: Xray Plain Films/CT/US/NM/MRI: chest Comments NAME: CANDIE RIVAS [facility] REC#: [id number] PT STATUS: REG ER : 1940 PHYSICIAN: KIRT ENRIQUE MD ADMIT DATE: 05/08/23/ER FS Draft Date of Exam:05/08/23 CHEST 1 VIEW AP/PA ONLY INDICATION: chest pains, edema. TECHNIQUE: Single view chest 6:47 PM. CORRELATION STUDY: 08/25/2020 FINDINGS: Left-sided pacemaker. Thoracic spine stimulator appears to have been repositioned. Heart size enlarged. Vasculature within normal limits. Tortuous course of the thoracic aorta with calcification of the aortic arch. Findings do suggest a likely rather sizable esophageal hernia in the lower left chest. The lungs are clear with no consolidating infiltrate. There is no significant effusion or pneumothorax. Surgical clips in the right axilla. IMPRESSION: 1. Cardiac enlargement without failure. 2. No infiltrate. 3. Findings do suggest likely rather sizable esophageal hernia. Dictated on workstation # [id number] Dict: 05/08/23 1857 Trans: 05/08/23 1900 GAVIN [id number] Interpreted by: TANA ROSS DO Electronically signed by: Reviewed: Reviewed by Me Departure Impression Primary Impression: Peripheral edema Additional Impressions: Hiatal hernia with GERD Acute cystitis without hematuria Disposition: 01 HOME, SELF-CARE Condition: Stable Departure-Patient Inst. Decision time for Depature: 20:00 Referrals: SINAN RIVAS MD (PCP/Family) Primary Care Physician Patient Instructions: Dependent Edema (DC), Hiatal Hernia (DC), Urinary Tract Infection, Adult ED Add. Discharge Instructions: Try to elevate your legs is much as possible to help with swelling and edema. Consider wearing compression stockings or hose to help with the swelling and edema in your legs. For the next 10 days take the higher dose of diuretic, furosemide, 40 mg a day. Take the potassium supplement with this as your potassium can get low while taking the diuretic. Check back with Dr. Garibay and the [facility] clinic to see how they want to manage your swelling and edema Take the full course of antibiotics for UTI The pantoprazole will help with acid and pain from your hiatal hernia. All discharge instructions reviewed with patient and/or family. Voiced understanding. Scripts Pantoprazole Sodium (Pantoprazole Sodium) 40 Mg Tablet.dr 40 MG PO DAILY for Hiatal Hernia for 30 Days, #30 TAB 0 Refills Prov: KIRT ENRQIUE MD 05/08/23 Potassium Chloride (Potassium Chloride) 10 Meq Capsule.er 10 MEQ PO DAILY for Diuretic for 10 Days, #10 CAP 0 Refills Take with Furosemide to supplement potassium Prov: KIRT ENRIQUE MD 05/08/23 Furosemide (Furosemide) 40 Mg Tablet 40 MG PO DAILY for edema for 10 Days, #10 TAB 0 Refills Prov: KIRT ENRIQUE MD 05/08/23 Cephalexin (Cephalexin) 500 Mg Capsule 500 MG PO TID for UTI for 5 Days, #15 CAP 0 Refills Prov: KIRT ENRIQUE MD 05/08/23 KIRT ENRIQUE MD May 08, 2023 18:51
[2023-05-08 18:54] LABS: BILIRUBIN,URINE NEGATIVE (NEGATIVE); CLARITY,URINE CLEAR; COLOR,URINE YELLOW; GLUCOSE, URINE (UA) NEGATIVE (NEGATIVE); KETONES,URINE NEGATIVE (NEGATIVE); LEUKOCYTE ESTERASE ,URINE TRACE (NEGATIVE); NITRITE,URINE NEGATIVE (NEGATIVE); PROTEIN,URINE NEGATIVE (NEGATIVE)
[2023-05-08 18:57] LABS: BACTERIA,URINE TRACE /HPF
--- NOTE | 2023-05-08 19:01 | Diagnostic Imaging Report ---
INDICATION: chest pains, edema. TECHNIQUE: Single view chest 6:47 PM. CORRELATION STUDY: 08/25/2020 FINDINGS: Left-sided pacemaker. Thoracic spine stimulator appears to have been repositioned. Heart size enlarged. Vasculature within normal limits. Tortuous course of the thoracic aorta with calcification of the aortic arch. Findings do suggest a likely rather sizable esophageal hernia in the lower left chest. The lungs are clear with no consolidating infiltrate. There is no significant effusion or pneumothorax. Surgical clips in the right axilla. IMPRESSION: 1. Cardiac enlargement without failure. 2. No infiltrate. 3. Findings do suggest likely rather sizable esophageal hernia. Dictated by: Dictated on workstation # [id number]
[2023-05-08 19:11] LABS: BASOPHILS # (AUTO) 0.1 10^3/uL (0.0-0.1); BASOPHILS % (AUTO) 1 % (0-10); EOSINOPHILS # (AUTO) 0.1 10^3/uL (0.0-0.3); EOSINOPHILS % (AUTO) 3 % (0-10); HEMATOCRIT 37 % (35-52); HEMOGLOBIN 12.2 g/dL (11.5-16.0); LYMPHOCYTES # (AUTO) 1.1 10^3/uL (1.0-4.0); LYMPHOCYTES % (AUTO) 25 % (12-44); MEAN CORPUSCULAR HEMOGLOBIN 31 pg (25-34); MEAN CORPUSCULAR HGB CONC 33 g/dL (32-36); MEAN CORPUSCULAR VOLUME 94 fL (80-99); MEAN PLATELET VOLUME 10.6 fL (9.0-12.2); MONOCYTES # (AUTO) 0.4 10^3/uL (0.0-1.0); MONOCYTES % (AUTO) 9 % (0-12); NEUTROPHILS # (AUTO) 2.8 10^3/uL (1.8-7.8); NEUTROPHILS % (AUTO) 62 % (42-75); PLATELET COUNT 148 10^3/uL (130-400); WHITE BLOOD COUNT 4.5 10^3/uL (4.3-11.0)
[2023-05-08 19:21] LABS: INR 0.9 (0.8-1.4); PROTHROMBIN TIME PATIENT 12.8 SEC (12.2-14.7)
[2023-05-08] MEDS ORDERED: PANTOPRAZOLE 40 MG (PROTONIX) VIAL IV STA (19:23)
[2023-05-08] MEDS ORDERED: KETOROLAC 15 MG/ML VIAL IVP STA (19:23)
[2023-05-08] MEDS ORDERED: ANTACID SUSP 30 ML UDC (MYLANTA) PO ONE (19:30)
[2023-05-08] MEDS ORDERED: LIDOCAINE 2% VISCOUS 15 ML UDC PO ONE (19:30)
[2023-05-08 19:31] LABS: CHLORIDE 102 MMOL/L (98-107); POTASSIUM 4.1 MMOL/L (3.6-5.0); SODIUM 141 MMOL/L (135-145)
[2023-05-08 19:32] LABS: ALANINE AMINOTRANSFERASE 21 U/L (0-55); ALBUMIN 3.9 GM/DL (3.2-4.5); ALKALINE PHOSPHATASE 61 U/L (40-136); BILIRUBIN,TOTAL 0.9 MG/DL (0.1-1.0); BUN/CREATININE RATIO 17; CALCIUM 9.2 MG/DL (8.5-10.1); CARBON DIOXIDE 27 MMOL/L (21-32); CREATININE SERUM 1.03 MG/DL (0.60-1.30); GFR ESTIMATED 55; GLUCOSE 114 MG/DL (70-105); LIPASE 58 U/L (8-78); MAGNESIUM 2.3 MG/DL (1.6-2.4); TOTAL PROTEIN 6.6 GM/DL (6.4-8.2)
[2023-05-08] MEDS ORDERED: FURO40TA4 PO (20:00)
[2023-05-08] MEDS ORDERED: POTA10CA44 PO (20:00)
[2023-05-08] MEDS ORDERED: CEPH500C PO (20:00)
[2023-05-08] MEDS ORDERED: PANT40TA52 PO (20:03)
[2023-05-08] MEDS ORDERED: cefTRIAXone IV/IM 1,000 MG in NS (IVPB) 50 ML IV STA (20:05)
[2023-05-08 20:17] VITALS: BP 136/64
== END 2023-05-08 20:18 | disposition home or self-care (01) ==
LOC: EDUNIT# 18:26 → ER FS 18:27
DX: R60.0 Localized edema (principal); K44.9 Diaphragmatic hernia without obstruction or gangrene; N30.00 Acute cystitis without hematuria; K21.9 Gastro-esophageal reflux disease without esophagitis; Z88.2 Allergy status to sulfonamides
CPT/HCPCS: 36415; 71045; 80053; 81000; 83690; 83735; 83880; 84484; 85025; 85610; 85730; 87088; 93005; 93041

== ENCOUNTER 2023-05-27 07:01 | Outpatient (CLI) | payer MEDICARE, OTHER ==
[~2023-05-27] VITALS: Ht 161.3 cm; Wt 66.3 kg
[~2023-05-27 07:01] MED LIST changes: +CEPH500C PO; +FURO40TA4 PO; +PANT40TA52 PO; +POTA10CA44 PO
[2023-05-27] MEDS ORDERED: POTA-177 PO (15:18)
[2023-05-27] MEDS ORDERED: ALPR0.5T7 PO (15:18)
[2023-05-27] MEDS ORDERED: PANT40TA52 PO (15:18)
[2023-05-27] MEDS ORDERED: FURO40TA4 PO (15:18)
[2023-05-28] MEDS ORDERED: DICL50TA6 PO (07:56)
[2023-05-28] MEDS ORDERED: MV-M1TAB57 PO (07:56)
[2023-05-28] MEDS ORDERED: FERR159T2 PO (07:56)
[2023-05-28] MEDS ORDERED: BRIM5DRO OU (07:56)
[2023-05-28] MEDS ORDERED: PARO30TA3 PO (07:56)
[2023-05-28] MEDS ORDERED: CHOL100048 PO (07:56)
[2023-05-28] MEDS ORDERED: B-CO1TAB5 PO (07:56)
[2023-05-28] MEDS ORDERED: PREG100C PO (07:56)
[2023-05-28] MEDS ORDERED: ACET-2267 PO (07:56)
[2023-05-28] MEDS ORDERED: LATA2.5D19 OU (07:56)
[2023-05-28] MEDS ORDERED: FURO20TA4 PO (07:58)
== END 2023-05-28 08:06 ==
LOC: PREOP 07:01
PROVIDERS: ATTEND Surgery
DX: Z01.818 Encounter for other preprocedural examination (principal)

== ENCOUNTER 2023-06-01 10:27 | Day surgery (SDC) | payer MEDICARE, OTHER ==
[~2023-06-01] VITALS: Ht 161.1 cm; Wt 66.3 kg
[~2023-06-01 10:27] MED LIST changes: +ACET-2267 PO; +ALPR0.5T7 PO; +B-CO1TAB5 PO; +BRIM5DRO OU; +CHOL100048 PO; +DICL50TA6 PO; +FERR159T2 PO; +FURO20TA4 PO; +LATA2.5D19 OU; +MV-M1TAB57 PO; +PARO30TA3 PO; +POTA-177 PO; +PREG100C PO
--- NOTE | 2023-06-01 10:47 | Progress Note-Pre Operative ---
Pre-Operative Progress Note Date of Available H&P: May 21, 2023 Date H&P Reviewed: Jun 01, 2023 Time H&P Reviewed: 10:45 History & Physical: H&P Reviewed, Patient Examed, No changes noted Pre-Operative Diagnosis: Chronic gastritis, Rectal pain, screening colonoscopy YUDELKA ZENDEJAS DO Jun 01, 2023 10:47
[2023-06-01] MEDS ORDERED: LACTATED RINGERS 1,000 ML IV STA (11:10)
[2023-06-01] MEDS ORDERED: HURRICAINE EXT TUBE (BENZOCAINE) XX PRN (11:15)
[2023-06-01 11:17] VITALS: BP 153/58
[2023-06-01] MEDS ORDERED: PROPOFOL INJECTION 50 ML IV ONE (11:59)
[2023-06-01 12:35] VITALS: BP 93/50
--- NOTE | 2023-06-01 12:35 | Anesthesia-General Post-Op ---
MAC Patient Condition Mental Status/LOC: Same as Preop Cardiovascular: Satisfactory Nausea/Vomiting: Absent Respiratory: Satisfactory Pain: Controlled Complications: Absent Post Op Complications Complications None Follow Up Care/Instructions Patient Instructions None needed. Anesthesiology Discharge Order Discharge Order Patient is doing well, no complaints, stable vital signs, no apparent adverse anesthesia problems. No complications reported per nursing. TOREY SANDS CRNA Jun 01, 2023 12:34
[2023-06-01 12:40] VITALS: BP 89/53
[2023-06-01 12:45] VITALS: BP 123/56
--- NOTE | 2023-06-01 13:27 | Progress Note-Post Operative ---
Post-Operative Progess Note Surgeon (s)/Brass Buffer (s) Surgeon YUDELKA ZENDEJAS DO Brass Buffer: RAMY Oconnell student Pre-Operative Diagnosis Chronic gastritis, Rectal pain, screening colonoscopy Post-Operative Diagnosis Gastritis Salcedo's Esophagus Gastric Ulcer Polyp Diverticula int hemorrhoids Procedure & Operative Findings Date of Procedure 06/01/23 Procedure Performed/Findings EGD with biopsy Colonoscopy with snare polypectomy PROCEDURE NOTE: After informed consent was obtained, the patient was brought to the endoscopy suite, placed in bed in left lateral decubitus position. She was administered IV sedation by the STEWARDESS SUPERVISOR who then monitored vitals the entire time, heart rate, blood pressure and pulse ox and the scope was inserted down the mouth through the esophagus into the stomach. On the way down, noted some moderate esophagitis, took a picture and pushed into the stomach. I thought I saw an ulcer in the antral area. I then pushed past the antrum into the duodenum; duodenum looked good. Pulled back and did a biopsy of the antrum, then retroflexed the scope, did not really see a hiatal hernia, took a picture and then pulled the scope into the GE junction. I did a biopsy of the cardia and then did a biopsy of the GE junction. Pushed the scope back into the stomach, suctioned all the air out of the stomach. At this point pulled the scope up the esophagus and out the mouth. Switched camera, switched gloves, went down below and started the colonoscopy. Pushed all the way to about 150 cm and pushed into the cecum, took a picture of appendiceal orifice and noted the ileocecal valve. Then slowly withdrew the scope insufflating to look circumferentially at the gordon starting in the cecum, up the ascending colon to the hepatic flexure, then down the transverse colon. Found a polyp here and did a snare polypectomy. Continued to the splenic flexure, into the descending colon down into the sigmoid and then into the rectal vault. I saw diverticula throughout the left colon. Finally, retroflexed the scope and took a picture of the internal hemorrhoids. The patient tolerated the procedure and she recovered in the endoscopy suite. Recommended for repeat colonoscopy in 5 years Anesthesia Type IV sedation by STEWARDESS SUPERVISOR Estimated Blood Loss Estimated blood loss (mL): scant Specimens/Packing Specimens Removed antral bx cardia bx GE jxn bx transverse colon polyp YUDELKA ZENDEJAS DO Jun 01, 2023 13:27
[2023-06-01 14:11] VITALS: BP 133/77
== END 2023-06-01 14:10 | disposition home or self-care (01) ==
LOC: ENDO 10:27
PROVIDERS: ATTEND Surgery
DX: D12.3 Benign neoplasm of transverse colon (principal); K57.30 Diverticulosis of large intestine without perforation or abscess without bleeding; K64.8 Other hemorrhoids; K21.00 Gastro-esophageal reflux disease with esophagitis, without bleeding; K29.50 Unspecified chronic gastritis without bleeding; K22.70 Barrett's esophagus without dysplasia; K25.9 Gastric ulcer, unspecified as acute or chronic, without hemorrhage or perforation; K31.89 Other diseases of stomach and duodenum; Z85.3 Personal history of malignant neoplasm of breast; Z95.0 Presence of cardiac pacemaker